=== PATIENT | female | born 1950 | race Caucasian/White ===

== ENCOUNTER 2016-09-25 19:05 | Observation (INO) ==
[2016-09-25] MEDS ORDERED: Aspirin 81 MG TAB.CHEW PO ONE (19:28)
--- NOTE | 2016-09-25 19:35 | Emergency Department Note ---
Disposition Clinical Impression: Chest pain of uncertain etiology Disposition: Admitted As Inpatient Condition: Fair Time of Disposition: 23:34 General Adult HPI - General Chief complaint: ED Shortness of Breath/Dyspnea Stated complaint: allergic reaction Time Seen by Provider: 09/25/16 19:07 Source: patient, family Mode of arrival: ambulatory Limitations: no limitations Nursing Notes Reviewed: Yes Vital Signs Reviewed: Yes - History of Present Illness HPI Narrative: Mrs. Perera, 66-year-old female, presents from home by POV with concerns of allergic reaction. Onset 30 minutes prior to arrival. Described as right-sided chest heaviness, "like a plate sitting on my chest." Associated with nausea, left arm tingling, generalized weakness, dyspnea, throat pressure "like somebody pinching my windpipe," and transient blurry vision. She is now symptom free with the exception of the throat pressure. Patient should return symptoms doxycycline for which she just completed a 21 day course of IV administration and is on day 8 of by mouth administration. She was placed on this by her primary care provider for strep colonization of her nasal sinuses. PMH: Hypertension, asthma-home albuterol nebs nebulizer, no supplemental oxygen. Allergies: Multiple antibiotic allergies No history of COPD, tobacco smoking, CAD, ACS. Family history: Father had ID at 65, mother had hemorrhagic stroke. ROS: Positive: Chest pain, dyspnea, weakness, left arm tingling, visual changes, nausea Negative: Palpitations, diaphoresis, back pain, abdominal pain, Pain Scale: 0 - Related Data Home Medications Medication Instructions Recorded Confirmed Albuterol Neb [Proventil Neb] 2.5 mg IH Q4H PRN 09/25/16 09/25/16 Albuterol Sulfate [Ventolin Hfa] 2 puff IH Q4H PRN 09/25/16 09/25/16 Ascorbate Calcium [Vitamin C] 500 mg PO DAILY 09/25/16 09/25/16 Calcium Carbonate [Calcium] 600 mg PO BID 09/25/16 09/25/16 Carbidopa/Levodopa 10 [Sinemet 1 each PO HS 09/25/16 09/25/16] Fluticasone Propionate Nasal 50 mcg NS DAILY 09/25/16 09/25/16 [Flonase] Fluticasone/Vilanterol [Breo 1 each IH DAILY 09/25/16 09/25/16 Ellipta 200-25 Mcg INH] Guaifenesin [Mucinex] 1,200 mg PO BID 09/25/16 09/25/16 Levothyroxine [Synthroid] 175 mcg PO 0630 09/25/16 09/25/16 Lisinopril [Zestril] 20 mg PO DAILY 09/25/16 09/25/16 Mepolizumab [Nucala] 100 mg SQ QMONTH 09/25/16 09/25/16 Montelukast [Singulair] 10 mg PO HS 09/25/16 09/25/16 [place]-3/Dha/Epa/Fish Oil [Fish Oil 1,000 mg PO DAILY 09/25/16 09/25/16 1,000 mg Softgel] Omeprazole [PriLOSEC] 20 mg PO DAILY 09/25/16 09/25/16 Potassium Chloride [K-Tab ER] 20 meq PO DAILY 09/25/16 09/25/16 Pramipexole Di-HCl [Pramipexole 0.5 mg PO HS 09/25/16 09/25/16 Dihydrochloride] Pseudoephedrine [Sudafed] 60 mg PO Q4-6H PRN 09/25/16 09/25/16 amLODIPine [Norvasc] 5 mg PO DAILY 09/25/16 09/25/16 hydroCHLOROthiazide 25 mg PO DAILY 09/25/16 09/25/16 [Hydrochlorothiazide] Allergies Allergy/AdvReac Type Severity Reaction Status Date / Time Cephalosporins Allergy Rash Verified 03/31/16 12:46 ciprofloxacin [From Cipro] Allergy Rash Verified 03/31/16 12:46 levofloxacin [From Levaquin] Allergy Rash Verified 03/31/16 12:46 linezolid [From Zyvox] Allergy Rash Verified 03/31/16 12:46 nitrofurantoin Allergy Rash Verified 03/31/16 12:46 [From Macrodantin] All systems ED: reviewed and negative except as stated. Past Medical History - Past Medical History Medical history: Reports: asthma, GERD, hypertension, other Psychiatric history: Reports: no psych history MOSS GATHERER history: Reports: bilateral tubal ligation - Social History Smoking Status: Never smoker Smokeless Tobacco Status: No Alcohol use: Reports: none Drug use: Reports: none Physical Exam Vital Signs Reviewed General: Patient is alert, oriented, and in no acute distress. HEENT: No facial asymmetry. Head is normocephalic and atraumatic. PERRLA. Trachea midline. Palate putty 1. No swelling patient's face, tongue, soft palate, posterior pharynx. Cardiovascular: Heart regular rate and rhythm without clicks, rubs, gallops, or murmurs. No JVD. PMI nondisplaced. No pedal edema or swelling of the patient' s hands. Bilateral radial and posterior tibial pulses 2/4. Respiratory: Symmetric chest rise with good respiratory effort. Prolonged expiratory phase. Bilateral breath sounds have right-sided wheezing without crackles or rhonchi. Abdomen: Obese. Bowel sounds present normoactive x-4 quadrants. Abdomen is soft, nondistended, and nontender. Skin: No erythema, urticaria, or rash evident on face, extremities, or trunk. Psych: Patient's affect is appropriate for situation. - General Limitations: no limitations General appearance: alert Course Course Narrative: Patient presents with her primary concern being a potential allergic reaction. She has no stridor, no wheeze, no angioedema or swelling of the soft palate or posterior pharynx. She has no swelling of her hands or feet. No urticaria. At this time, her story is clinically suspicious for possible ACS. Cardiac risks include age, hypertension, obesity. Patient family remain adamant is allergic. Will provide empiric dexamethasone, Prilosec, and Benadryl. Patient is currently chest pain-free. We will also provide empiric Aspirin. EKG shows A. fib with no acute changes. Initial troponin is negative however this was drawn less than 4 hours of onset of symptoms. Other lab work is unremarkable. Last cardiac workup several years ago-stress test, echo. Discussed my concerns with the patient regarding possible ACS and how cannot be ruled out at this time she is brought into the hospital. Patient expresses concern over observation versus admission. Discussed that I cannot guarantee a mission status is that is decided by the hospitalist based upon her need. She agrees to coming into the hospital for continued evaluation workup. Spoke with the admitting hospitalist, Dr. Munguia, who agrees to accept the patient. Vital Signs Temperature 97.4 F L 09/25/16 19:15 Pulse Rate 85 09/25/16 19:15 Respiratory Rate 18 09/25/16 19:15 Blood Pressure 132/75 09/25/16 19:15 O2 Sat by Pulse Oximetry 100 09/25/16 19:15 Temperature 97.4 F L 09/25/16 19:15 Pulse Rate 70 09/25/16 22:07 Respiratory Rate 18 09/25/16 22:45 Blood Pressure 116/79 09/25/16 22:45 O2 Sat by Pulse Oximetry 97 09/25/16 22:07 Oxygen Delivery Oxygen Delivery Room Air Medical Decision Making - Medical Records Medical records reviewed: Yes I reviewed the patient's medical records. - Lab Data Lab results reviewed: Yes I reviewed the patient's lab results. Result diagrams: 09/25/16 19:39 09/25/16 19:39 Lab Results 09/25/16 09/25/16 09/25/16 Range/Units 19:39 19:39 19:39 WBC 14.8 H (4.3-11.1) K/mcL RBC 5.69 H (3.82-4.97) M/mcL Hgb 14.5 (11.5-15.4) g/dL Hct 44.8 (35.3-44.9) % MCV 78.7 L (83.0-100.0) fL MCH 25.5 L (28.0-33.3) pg MCHC 32.4 (31.6-35.5) g/dL RDW 13.2 (11.5-14.5) % Plt Count 358 (140-400) K/mcL MPV 10.2 (9.4-12.4) fL Immature Gran % 0.4 (0-4) % Seg Neutrophils % 72.2 % Lymphocytes % 19.5 % Monocytes % 5.7 % Eosinophils % 1.3 % Basophils % 0.9 % Neutrophils # 10.7 H (1.6-8.9) K/mcL Lymphocytes # 2.9 (0.6-4.6) K/mcL Monocytes # 0.8 (0.0-1.3) K/mcL Eosinophils # 0.2 (0.0-0.6) K/mcL Basophils # 0.1 (0.0-0.2) K/mcL Sodium 136 (136-145) mEq/L Potassium 3.7 (3.5-4.5) mEq/L Chloride 101 (98-109) mEq/L Carbon Dioxide 23 (19-29) mEq/L BUN 17 (7-20) mg/dL Creatinine 1.30 H (0.57-1.11) mg/dL Est GFR ( Amer) 49 L (> 60) Est GFR (Non-Af Amer) 41 L (> 60) BUN/Creatinine Ratio 13 (6-26) Glucose 112 H (70-99) mg/dL Calculated Osmolality 284 (280-300) Calcium 9.8 (8.6-10.8) mg/dL Troponin I 0.01 (0-0.03) ng/mL - Radiology Data Radiology results reviewed: Yes I reviewed the patient's radiology results. Chest X-Ray 09/25/16 19:29 IMPRESSION: No acute cardiopulmonary abnormality. D/ / Lele Gregg MD / Lele Gregg MD Interpreting Provider: Lele Gregg MD - EKG Data EKG #1 EKG attestation: Yes I reviewed and interpreted this EKG. EKG results narrative: Patient's EKG, interpreted by myself without the benefit of for cardiology interpretation shows a normal sinus rhythm at 78 bpm low-voltage across the precordial leads, left anterior fascicular block, no significant change from prior EKG from 04/06/2016. Attestation Statement - Attestation Attestation: I personally interviewed and examined this patient and my medical decision- making was reviewed with the ED Resident Physician, Dr. Pierre I agree with the documented findings, disposition and treatment plan as described except to the extent set forth below. Patient is a 58-year-old white female with a history of hypertension who presents to the emergency department with complaints of substernal chest heaviness and pressure sensation that goes into the right side of her chest and up into her neck, associated with shortness of breath and mild nausea. Patient very insistent that this is similar to prior episodes of anaphylaxis that she has had in the past, although patient with no allergic like symptoms here. Patient just finished a long course of doxycycline last week and had been reading the package insert for the side effects and was concerned that this could be causing an allergic reaction as she has numerous allergic reactions to antibiotics. Patient has no facial swelling, no hoarseness or change in her voice, no stridor or wheezing, no signs of respiratory distress, no rash or itchy skin, no difficulty swallowing or managing secretions. Patient with no nausea vomiting diarrhea or abdominal cramping. EKG shows no acute ST or T-wave changes appreciated. Patient very insistent on requesting antiallergy medications. This chest pain, so we did administer Benadryl steroids and Pepcid IV. Patient was also given aspirin in evaluated the patient with labs to rule out possible ACS. Patient even mentioned in her history that she was having exertional dyspnea. At this time patient's portal chest x-ray as well as her labs including initial troponin are all within normal limits. Patient is feeling better at this time and is chest pain-free currently. We will admit to the hospitalist service for further evaluation and management of chest pain. Heart Score - Score History: Moderately Suspicious EKG: Non Specific repolarisation Disturbance Age: Greater than 65 Risk Factors: 1-2 risk factors Troponin: Less than normal limit HEART Score Total: 5
[2016-09-25] MEDS ORDERED: Famotidine 20 MG/2 ML VIAL IVP ONE (19:36)
[2016-09-25] MEDS ORDERED: Dexamethasone 4 MG/ML VIAL IVP ONE (19:36)
[2016-09-25 20:17] LABS: Basophils # 0.1 K/mcL (0.0-0.2); Basophils % 0.9 %; Eosinophils # 0.2 K/mcL (0.0-0.6); Eosinophils % 1.3 %; Hematocrit 44.8 % (35.3-44.9); Hemoglobin 14.5 g/dL (11.5-15.4); Immature Granulocytes % 0.4 % (0-4); Lymphocytes # 2.9 K/mcL (0.6-4.6); Lymphocytes % 19.5 %; Mean Corpuscular HGB Conc 32.4 g/dL (31.6-35.5); Mean Corpuscular Hemoglobin 25.5 pg (28.0-33.3); Mean Corpuscular Volume 78.7 fL (83.0-100.0); Mean Platelet Volume 10.2 fL (9.4-12.4); Monocytes # 0.8 K/mcL (0.0-1.3); Monocytes % 5.7 %; Neutrophils # 10.7 K/mcL (1.6-8.9); Platelet Count 358 K/mcL (140-400); Red Blood Count 5.69 M/mcL (3.82-4.97); Red Cell Distribution Width 13.2 % (11.5-14.5); Segmented Neutrophils % 72.2 %
[2016-09-25 20:19] LABS: Calcium 9.8 mg/dL (8.6-10.8); Potassium 3.7 mEq/L (3.5-4.5)
[2016-09-25] MEDS ORDERED: Naloxone 0.4 MG/ML INJ IVP PRN (23:30)
[2016-09-25] MEDS ORDERED: Ondansetron 4 MG/2 ML VIAL IVP PRN (23:30)
[2016-09-25] MEDS ORDERED: *HR* Morphine 2 MG/ML SYRINGE IVP PRN (23:30)
[2016-09-25] MEDS ORDERED: Acetaminophen 325 MG TABLET PO PRN (23:30)
[2016-09-25] MEDS ORDERED: 0.9 % Sodium Chloride 1,000 ML IVC SCH (23:30)
[2016-09-25] MEDS ORDERED: Nitroglycerin 0.4 MG TAB.SUBL SL PRN (23:35)
--- NOTE | 2016-09-25 23:38 | Internal Med History&Physical ---
Date of Encounter: 09/25/16 Time of Encounter: 23:36 Assessment and Plan (1) Chest pain of uncertain etiology Current visit: Yes Status: Acute Continue aspirin, statin, check lipid panel, telemetry, follow troponins Schedule stress test for the morning Famotidine for GI prophylaxis and Lovenox for DVT prophylaxis. The patient will be admitted for observation. Full code. Time spent on this admission 40 minutes. (2) Chronic sinusitis Current visit: Yes Status: Acute Order CT scan of the sinuses to consider discontinuing antibiotics, hold doxycycline Qualifiers: Sinusitis location: unspecified location Qualified Code(s): J32.9 - Chronic sinusitis, unspecified (3) Asthma Current visit: Yes Status: Acute The patient says she was having an allergic reaction Improving, continue IV Decadron, albuterol as needed Qualifiers: Asthma severity: unspecified severity Asthma complication type: uncomplicated Qualified Code(s): J45.909 - Unspecified asthma, uncomplicated (4) Restless leg syndrome Current visit: Yes Status: Acute (5) Hypertension Current visit: Yes Status: Acute Hold lisinopril for now Qualifiers: Hypertension type: essential hypertension Qualified Code(s): I10 - Essential (primary) hypertension Internal Medicine - H&P: HPI Chief complaint: Chest pain and possible allergic reaction Admitted From: Emergency Dept History of present illness: Ms. Perera is a 66 year old female with a past medical history of asthma, hypertension, recurrent sinusitis who came to the emergency room complaining of having an allergic reaction. She was given doxycycline by her ENT physician and has been having different side effects including blurry vision but today she felt like something was sitting on her chest mostly on the right side, felt short of breath and felt like her throat was closing. The patient mentions that her voice closed and insists that she has multiple allergies. Also she has history of asthma. Her EKG and troponins were negative. Chest x-ray was unremarkable. She was given a dose of Decadron at the emergency room, aspirin. Her white blood cell count is 14.8, she took her last dose of doxycycline this morning but she says she needs to have it for 2 more weeks. The patient says she completed 4 weeks of daptomycin IV at [facility] and was receiving doxycycline Past Med Surg Social Fam HX - Past Medical History Medical history: asthma, GERD, hypertension, other (Recurrent sinusitis with a Staphylococcus aureus, pulmonary nodule, hypothyroidism, vocal cord dysfunction , restless leg syndrome, GERD) Psychiatric history: no psych history, other (The patient claims to have allergic reactions to sulfa, Augmentin, cephalosporins, Macrodantin, vancomycin , Zithromax, ciprofloxacin, Bactrim, Zyvox, Levaquin) - Past Surgical History Surgical History: hysterectomy, other (Tubal ligation, bladder lift, ganglion cyst left wrist, carpal tunnel in both wrists, 9 sinus surgeries) - Social History Smoking Status: Never smoker Smokeless Tobacco Status: No Alcohol use: none Drug use: none - Additional Family History Additional family history: Father with myocardial infarction at the age of 65, mother with hemorrhagic CVA Internal Medicine - H&P: Meds Albuterol Neb [Proventil Neb] 2.5 mg IH Q4H PRN 09/25/16 [History] Albuterol Sulfate [Ventolin Hfa] 2 puff IH Q4H PRN 09/25/16 [History] Ascorbate Calcium [Vitamin C] 500 mg PO DAILY 09/25/16 [History] Calcium Carbonate [Calcium] 600 mg PO BID 09/25/16 [History] Carbidopa/Levodopa 10/100 [Sinemet 10/100] 1 each PO HS 09/25/16 [History] Fluticasone Propionate Nasal [Flonase] 50 mcg NS DAILY 09/25/16 [History] Fluticasone/Vilanterol [Breo Ellipta 200-25 Mcg INH] 1 each IH DAILY 09/25/16 [ History] Guaifenesin [Mucinex] 1,200 mg PO BID 09/25/16 [History] Levothyroxine [Synthroid] 175 mcg PO 0630 09/25/16 [History] Lisinopril [Zestril] 20 mg PO DAILY 09/25/16 [History] Mepolizumab [Nucala] 100 mg SQ QMONTH 09/25/16 [History] Montelukast [Singulair] 10 mg PO HS 09/25/16 [History] [place]-3/Dha/Epa/Fish Oil [Fish Oil 1,000 mg Softgel] 1,000 mg PO DAILY 09/25/16 [History] Omeprazole [PriLOSEC] 20 mg PO DAILY 09/25/16 [History] Potassium Chloride [K-Tab ER] 20 meq PO DAILY 09/25/16 [History] Pramipexole Di-HCl [Pramipexole Dihydrochloride] 0.5 mg PO HS 09/25/16 [History] Pseudoephedrine [Sudafed] 60 mg PO Q4-6H PRN 09/25/16 [History] amLODIPine [Norvasc] 5 mg PO DAILY 09/25/16 [History] hydroCHLOROthiazide [Hydrochlorothiazide] 25 mg PO DAILY 09/25/16 [History] Allergies Cephalosporins Allergy (Verified 03/31/16 12:46) Rash ciprofloxacin [From Cipro] Allergy (Verified 03/31/16 12:46) Rash levofloxacin [From Levaquin] Allergy (Verified 03/31/16 12:46) Rash linezolid [From Zyvox] Allergy (Verified 03/31/16 12:46) Rash nitrofurantoin [From Macrodantin] Allergy (Verified 03/31/16 12:46) Rash Sulfa (Sulfonamide Antibiotics) Adverse Reaction (Verified 09/25/16 23:42) Rash All Systems PM: A 10-system review of systems was performed and is negative for pertinent findings except as documented above in the HPI. Review of systems: Symptoms have subsided at the moment and the patient feels much better. Other systems out of the 10 reviewed are negative - Constitutional Vitals: Temp Pulse Resp BP Pulse Ox 97.4 F L 70 18 116/79 97 09/25/16 19:15 09/25/16 22:07 09/25/16 22:45 09/25/16 22:45 09/25/16 22:07 General appearance: Present: A&O X 3 - Head Head exam: Present: atraumatic, normocephalic - Eye Eye exam: Present: PERRL, conjuntiva pink, sclera anicteric Pupils: Present: PERRL - Neck Neck exam general surgery: Present: supple, trachea midline. Absent: lymphadenopathy - Respiratory Respiratory exam: Present: CTAB. Absent: accessory muscle use, rales, rhonchi, wheezes - Cardiovascular Cardiovascular exam: Present: RRR, +S1, +S2. Absent: diastolic murmur, gallop, rubs, systolic murmur - GI/Abdominal GI/Abdominal exam: Present: normal bowel sounds, soft, no peritoneal signs. Absent: distended, tenderness - Extremities Exam Extremities exam: Present: warm, radial pulses palpable and symetrical. Absent : calf tenderness, cyanotic, pedal edema - Neurological Exam Neurological exam: Present: CN II-XII intact, oriented X3, no focal deficits. Absent: pronater drift, facial droop, speech deficit - Skin Skin exam: Present: dry, intact Internal Med - H&P Results - Labs CBC & Chem 7: 09/25/16 19:39 09/25/16 19:39
[2016-09-25] MEDS ORDERED: MEPOLIZUMAB 100 MG SQ SCH (23:45)
[2016-09-26 00:39] LABS: Calcium 9.7 mg/dL (8.6-10.8); Chol/HDL Ratio 5.7 (0-4.9)
[2016-09-26] MEDS: Dexamethasone 4 MG/ML VIAL IVP SCH ×3 (00:51→12:20)
[2016-09-26] MEDS ORDERED: *HR* Enoxaparin 40 MG/0.4 ML SYRINGE SQ SCH (06:00)
[2016-09-26] MEDS ORDERED: Regadenoson 0.4 MG/5 ML SYRINGE IVP ONE (08:25)
[2016-09-26] MEDS ORDERED: Aspirin Enteric Coated 325 MG Tablet PO SCH (09:00)
[2016-09-26] MEDS ORDERED: Famotidine 20 MG TABLET PO SCH (09:00)
[2016-09-26] MEDS ORDERED: hydroCHLOROthiazide 25 MG TABLET PO SCH (09:00)
[2016-09-26] MEDS ORDERED: amLODIPine 5 MG TABLET PO SCH (09:00)
[2016-09-26 11:39] VITALS: BP 145/75
--- NOTE | 2016-09-26 13:47 | Nuclear Medicine Stress Report ---
Regadenoson Nuclear Stress Name: Tammie Perera Date of Study: 09/26/2016 Date: 1950 Ht: 65.0 in Medical Record#: [id number] Age: 66 Wt: 203.0 lb Gender: Female Order #: [id number] Location: [facility] IP Room: [facility] Supervising Provider: Liz Ruano CNP Reading Physician: Bala Sanders MD, [facility] Ordering Physician: Miley Wilder CNP Primary Care Physician: None Stress Technologist: Pebbles Ramsey, CLINICAL GENETICIST, CCT, CPFT Information Systems Coordinator: Charly De La Rosa Indications: Chest Pain Impression: No significant ECG changes with regadenoson. Gated LVEF = 69%. Perfusion imaging was negative for ischemia or infarct. History: Hypertension Stress Test Summary: Stress Test Type: Pharmacologic Regadenoson 0.4mg/5ml given IV Baseline Information: Initial Heart Rate: 65 Blood Pressure: 106/80 Stress Information: Test Terminated Due to (primary): As per protocol Maximum Blood Pressure: 114/70 Maximum Heart Rate: 91 Percent Maximum Heart Rate Achieved: 60 Double Product: [id number] Symptoms: Shortness of breath Nuclear Summary: SPECT myocardial perfusion imaging using Tc99m Sestamibi given intravenously was performed at rest and following cardiac stress testing. The resting images were obtained following initial dose of 11.9 mCi. Following stress an additional dose of 32.6 mCi was given at peak exercise or 30 seconds post regadenoson infusion. Findings: Stress Note * Resting ECG demonstrated sinus rhythm, left axis deviation, low voltage in precordial leads, poor r-wave progression. * No baseline arrhythmias were noted. * Patient had no chest pain during stress. * Rare PVCs noted during stress. * No significant ECG changes with regadenoson. Hemodynamic responses * Normal hemodynamic responses to pharmacologic stress. Study Quality * Study quality is average. Gated EF % * Gated LVEF = 69%. Left Ventricle * The left ventricle is not dilated. * Normal Segmental Perfusion in rest. * Normal segmental perfusion in stress. * Mild inferior artifact noted. TID * No evidence of transient ischemic dilatation. Updated by Bala Sanders MD, [facility] on 09/26/2016 1:42:26 PM electronically signed on 09/26/2016 1:43:09 PM with status of Final
--- NOTE | 2016-09-26 14:02 | Discharge Summary ---
Date of Encounter: 09/26/16 Time of Encounter: 13:00 - Discharge Diagnosis (1) Chest pain of uncertain etiology Priority: Primary Status: Acute Comments: Pt reports R chest heaviness that she states felt like prior episodes of anaphylaxis. She describes a light chest pressur on the R side of her chest and some midsternal chest pain. States that she started Doxycycline on September 17 and she states that she feels like she was going to have anyphylaxis again. She denies SOB, nausea, diaphoresis. She states that she was mowing when chest heaviness started. Stress test showed gated EF 69% and perfusion was negative for ischemia or infarct. Troponins were negative x 3. EKG NSR without evidence of ischemia. She denies the pressure now. (2) Chronic sinusitis Priority: Secondary Status: Chronic Comments: Patient reports chronic sinusitis she was recently treated with 28 days of IV antibiotics, doxycycline, then started by mouth doxycycline on September 17. Also for chronic sinusitis. CT sinus done in the emergency department showed evidence of prior surgery, near complete opacification of bilateral frontal maxillary sinuses and obstruction frontal ethmoidal recess bilaterally. Patient has multiple allergies to multiple antibiotics. We will continue doxycycline outpatient. Qualifiers: Sinusitis location: unspecified location Qualified Code(s): J32.9 - Chronic sinusitis, unspecified (3) Asthma Priority: Secondary Status: Chronic Comments: No exacerbation. Continue home medications. Qualifiers: Asthma severity: unspecified severity Asthma complication type: uncomplicated Qualified Code(s): J45.909 - Unspecified asthma, uncomplicated (4) Restless leg syndrome Priority: Secondary Status: Chronic (5) Hypertension Priority: Secondary Status: Chronic Comments: Chronic. Continue medications. Qualifiers: Hypertension type: essential hypertension Qualified Code(s): I10 - Essential (primary) hypertension - Discharge Medications Home Medications: Albuterol Neb [Proventil Neb] 2.5 mg IH Q4H PRN 09/25/16 [History] Albuterol Sulfate [Ventolin Hfa] 2 puff IH Q4H PRN 09/25/16 [History] Ascorbate Calcium [Vitamin C] 500 mg PO DAILY 09/25/16 [History] Calcium Carbonate [Calcium] 600 mg PO BID 09/25/16 [History] Carbidopa/Levodopa 10/ [Sinemet 10/] 1 each PO HS 09/25/16 [History] Fluticasone Propionate Nasal [Flonase] 50 mcg NS DAILY 09/25/16 [History] Fluticasone/Vilanterol [Breo Ellipta 200-25 Mcg INH] 1 each IH DAILY 09/25/16 [ History] Guaifenesin [Mucinex] 1,200 mg PO BID 09/25/16 [History] Levothyroxine [Synthroid] 175 mcg PO 0630 09/25/16 [History] Lisinopril [Zestril] 20 mg PO DAILY 09/25/16 [History] Mepolizumab [Nucala] 100 mg SQ QMONTH 09/25/16 [History] Montelukast [Singulair] 10 mg PO HS 09/25/16 [History] [place]-3/Dha/Epa/Fish Oil [Fish Oil 1,000 mg Softgel] 1,000 mg PO DAILY 09/25/16 [History] Omeprazole [PriLOSEC] 20 mg PO DAILY 09/25/16 [History] Potassium Chloride [K-Tab ER] 20 meq PO DAILY 09/25/16 [History] Pramipexole Di-HCl [Pramipexole Dihydrochloride] 0.5 mg PO HS 09/25/16 [History] Pseudoephedrine [Sudafed] 60 mg PO Q4-6H PRN 09/25/16 [History] amLODIPine [Norvasc] 5 mg PO DAILY 09/25/16 [History] hydroCHLOROthiazide [Hydrochlorothiazide] 25 mg PO DAILY 09/25/16 [History] Allergies/Adverse Reactions: Allergies Cephalosporins Allergy (Verified 03/31/16 12:46) Rash ciprofloxacin [From Cipro] Allergy (Verified 03/31/16 12:46) Rash levofloxacin [From Levaquin] Allergy (Verified 03/31/16 12:46) Rash linezolid [From Zyvox] Allergy (Verified 03/31/16 12:46) Rash nitrofurantoin [From Macrodantin] Allergy (Verified 03/31/16 12:46) Rash Sulfa (Sulfonamide Antibiotics) Adverse Reaction (Verified 09/25/16 23:42) Rash Procedures/tests Complete & Pending: Procedures Performed prior 72 hours Category Date Time Status CT sinus wo con [CT] Routine Cat Scan 09/26/16 08:00 Completed NM carlos perf SPECT multi [NM] Routine Exams 09/25/16 23:28 Taken SP pharm nuclear stress Routine Y 09/26/16 23:28 Completed Date of admission: 09/25/16 22:35 Primary care physician: Nic Otero DO Discharging clinician: Miley Wilder Anticipated date of discharge: 09/26/16 - Patient Status Disposition: Home, Self-Care Condition: Good Functional capacity at discharge: independent ambulation Overall status at discharge: patient is back to baseline - Discharge Instructions Follow Up With: Nic Otero DO [Primary Care Provider] - Additional Instructions: Please return to the emergency department as needed for any new or concerning symptoms or if her chest pressure returns. Please resume your home medications. Continue the doxycycline. Follow-up the primary care physician in the next week to 10 days for follow-up visit. - Diet and Activity Activity: resume usual activities as tolerated Diet: advance to your usual diet Hospital course: Ms. Perera is a 66 year old female with a history of chronic sinusitis who presented to the emergency department with atypical chest pain. Patient states that she is allergic to multiple antibiotics and has had anaphylaxis multiple times. She said she began having right sided "light" chest pressure that radiated to substernal area. This started while she was mowing her yard. She said she was resting frequently and she went outside to move the lawnmower back up to her patio when the chest pain caused her concern and she decided to come to the emergency department. She is not having the pressure now. She has no dyspnea, shortness of breath, chest pain, nausea, diaphoresis, abdominal pain, back pain, peripheral edema, rashes. She has been treated recently with 28 days of IV doxycycline for chronic sinusitis, on September 17 she started 21 days of by mouth doxycycline. She will continue this on discharge. Sinus CT showed chronic sinusitis. Patient had a stress test today showed a gated EF of 69%, negative for ischemia or infarct. Physical exam is unremarkable. There is no wheezing, stridor, rashes, tongue or throat swelling, lungs are clear anteriorly and posteriorly. S1-S2 is heard without gallops, clicks, murmurs, rubs. Rhythm is regular. Skin is pink warm and dry without rashes or lesions. Abdomen is soft and rounded, nontender, bowel sounds are present. There is no peripheral edema. Peripheral pulses are +2 bilaterally upper and lower. Labs are within normal limits with the exception of lipid panel. Patient is taking fish oil with omega threes. She will need follow-up with primary care for evaluation for assessment of need for a fenofibrate or a statin. Vital signs are stable. Patient is ready for discharge. - Time Spent with Patient Total time spent providing and/or coordinating discharge services: Less than 30 minutes - Constitutional Vitals: Temp Pulse Resp BP Pulse Ox 98.0 F 69 16 145/75 98 09/26/16 11:38 09/26/16 11:38 09/26/16 11:38 09/26/16 11:38 09/26/16 11:38 General appearance: Present: A&O X 3, pleasant, no acute distress, answers questions appropriately - Head Head exam: Present: normal inspection - Eye Eye exam: Present: normal appearance, conjuntiva pink - ENT ENT exam: Present: mucous membranes moist, normal exam, normal external ear exam - Neck Neck exam general surgery: Absent: lymphadenopathy, tenderness - Respiratory Respiratory exam: Present: CTAB. Absent: decreased breath sounds, rales, rhonchi, wheezes - Cardiovascular Cardiovascular exam: Present: RRR, +S1, +S2. Absent: diastolic murmur, systolic murmur - GI/Abdominal GI/Abdominal exam: Present: distended, normal bowel sounds, soft. Absent: hepatomegaly, tenderness - Extremities Exam Extremities exam: Present: normal capillary refill, warm, radial pulses palpable and symetrical. Absent: pedal edema, tenderness - Neurological Exam Neurological exam: Present: no focal deficits, strengths equal and symetr throughout. Absent: facial droop, speech deficit
--- NOTE | 2016-09-28 07:58 | Electrocardiograph Report ---
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
== END 2016-09-26 17:14 | disposition home or self-care (01) ==
LOC: EMEROO 19:05 → 3BNU 19:05
PROVIDERS: ADMIT Registered Nurse; ATTEND Registered Nurse